=== PATIENT | male | born 1975 | race Caucasian/White ===

== ENCOUNTER 2020-03-20 17:52 | Emergency (ER) | payer MEDICAID ==
[~2020-03-20] VITALS: Ht 177.8 cm; Wt 90.0 kg
[~2020-03-20 17:52] MED LIST: LIDOcaine 1% 30ml preserv. free vial ONE
[2020-03-20 18:04] VITALS: BP 123/82
== END 2020-03-20 19:09 | disposition home or self-care (01) ==
LOC: ER 17:53
DX: S60.452A Superficial foreign body of right middle finger, initial encounter (principal); F15.90 Other stimulant use, unspecified, uncomplicated; F11.90 Opioid use, unspecified, uncomplicated; Z98.890 Other specified postprocedural states; W45.8XXA Other foreign body or object entering through skin, initial encounter; Y93.89 Activity, other specified; Y92.89 Other specified places as the place of occurrence of the external cause; Y99.8 Other external cause status
CPT/HCPCS: 64450; 99284; J2001